=== PATIENT | male | born 1950 | race Caucasian/White ===

== ENCOUNTER 2025-05-09 15:06 | Outpatient (REF) | payer MEDICARE, SELFPAY ==
[2025-05-09 18:14] LABS: Anion Gap 9 (12-20); Blood Urea Nitrogen 25 mg/dL (9-16); Calcium 9.2 mg/dL (8.4-10.2); Carbon Dioxide 27 mmol/L (22-29); Chloride 110 mmol/L (96-108); Estimated Glomerular Filt Rate > 60; Potassium 3.7 mmol/L (3.3-5.1); Sodium 142 mmol/L (135-145)
[2025-05-09 18:23] LABS: Folate 6.3 ng/mL (> or = 4.0); Vitamin B12 645 pg/mL (200-900)
== END 2025-05-09 15:07 | disposition home or self-care (01) ==
LOC: HO.LAB 15:06
PROVIDERS: PCP Internal Medicine; Visit Provider Psychiatry & Neurology Neurology
DX: G31.84 Mild cognitive impairment of uncertain or unknown etiology (principal)
CPT/HCPCS: 36415; 80048; 82233; 82234; 82607; 82746; 84393; 84443

== ENCOUNTER 2025-05-09 15:06 | Outpatient (AMB) | payer MEDICARE, SELFPAY ==
--- NOTE | 2025-05-09 15:21 | A.OFFVIS_ITS ---
Intake Visit Reasons: dizziness, memory problem Allergies No Known Allergies Allergy (Verified 05/05/25 08:10) Medication List - Last Reconciled 05/09/25 by Kristin Burgos MD lorazepam 0.5 mg PO BEDTIME PRN HPI Comments Details: This is a healthy 75-year-old right-handed man who is here with his because of concerns of fairly significant short-term memory problems in the last 1-2 years, most noticeable in the last 6 months. He is aware of it. There is also been a few occasions of spatial disorientation while driving even though his driving skills are excellent still. His sleep is disrupted by trips to the bathroom 4 times every night and he has seen a urologist who prescribed tamsulosin which she has not started. He sometimes loses thread of conversation. He was also going through appeared a fatigue which has improved, during which time he would take power naps in the day. He goes to the gym and does weights and cardio for 1-1/2 hours 7 days a week. His appetite is good. He has a son who is 36 years old and is in administration at [employer]. The patient had 3 years of college at [employer] but did not graduate. 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 He gets occasional lightheaded dizziness if he bends down and stands up quick. He recently had an MRI of the brain at [place] which is reported as showing some ventriculomegaly and cortical atrophy. The question of hydrocephalus was raised. The disc was not available for review personally at the time of this evaluation. He has no bladder control issues and no gait problems. His father at 83 with Lewy body dementia. Mother lived till 95 and both sharp mentally. [facility] Medical History (Updated 05/09/25 @ 15:43 by Kristin Burgos MD) Memory problem Dizziness Review of Systems ENT Details: Sinus congestion and sinus problems, cough, and hearing loss Reports dizziness, Reports hearing loss and Reports nasal congestion Details: Urinary frequency especially at night. Neuro Reports dizziness and Reports memory loss Psych Reports anxiety and Reports memory loss Physical Exam Neuro Other: Mini Mental Status Exam Level of Consciousness:?Alert.? Orientation:?Knows correct year, month, date, day and season.?Knows correct city, county and state. Knows correct location and floor.? Registration:?Able to register 3 objects.? Attention:?Serial 7's performed?? accurately ti 51.? Recall:?Able to recall 3 out of 3 objects.?at 3 minutes, and 2/3 at 10 minutes Language:?Normal spontaneous speech, fluency, repetition, naming, comprehension, reading, and writing.? ?? Total Score:?30/30.? Neurological Abnormal neurological findings:??Walks with a walker. Morbidly obese. ? Mental Status:?Alert and oriented X 3.?Normal attention, orientation, memory, and affect.? Cranial Nerves:?Pupils are equal, round and reactive to light. Fundoscopy shows normal disc bilaterally. External ocular muscles are intact. Visual nguyen are full, no ptosis. Face is symmetrical, no facial weakness or droop. Facial sensations are normal.? Tongue protrudes in midline. Palate elevates symmetrically. Shoulder?? shrugging is normal.? Motor Examination:?Normal muscle tone, bulk and strength.?No atrophy or fasciculations.?No drift of the extended upper extremities.?Deep tendon reflexes are 2+.?Plantars?? are flexor.? ?Motor Strength:? Proximal Muscles (out of 5):?5 Distal Muscles (out of 5):?5 Neck Flexors (out of 5):?5 Neck Extensors (out of 5):?5 Deltoid (out of 5):?5 Biceps (out of 5):?5 Triceps (out of 5):?5 Serratus Anterior (out of 5):?5 Wrist Extensors (out of 5):?5 APB (out of 5):?5 Finger Spread (out of 5):?5 Ileopsoas (out of 5):?5 Quadriceps (out of 5):?5 Hamstrings (out of 5):?5 Tibialis Anterior (out of 5):?5 Peronei (out of 5):?5 EDB (out of 5):?5 Gastrocnemius (out of 5):?5 Straight Leg Raising:?90 degrees.? Sensory Exam:?Normal light touch,?? temperature, pinprick, vibration and joint- position sensations.?Rhomberg?? sign is absent.? Coordination:?No ataxia,?no titubation,?edbshq-hg-[id number], xrri-wtnr-mrbs test, and rapid alternating?? movements were normal.? Gait Exam:?Walks with a waddle using a walker. ? Cerebellar Signs:?Yfkiep-dx-tqay and?? gtli-yj-lqvo is normal.?No dysdiadochokinesia.? Extrapyramidal System:?No tremor or?rigidity, normal facial expressions.?No bradykinesia. No bradyphrenia. Normal arm swing and posture. No propulsion or retropulsion.? Speech:?Normal,?no dysphasia or dysarthria.? General Examination GENERAL APPEARANCE:??Morbid obesity, in no acute distress?.? ?? HEAD:??normocephalic,?atraumatic.? ?? EYES:??sclera non-icteric,?conjunctiva clear.? ?? EARS:??auditory canal clear,?tympanic membrane intact, clear.? ?? NOSE:??no lesions.? ?? ORAL CAVITY:??gums normal,?mucosa moist,?no lesions.? ?? THROAT:??clear.? ?? NECK/THYROID:??no cervical lymphadenopathy,?thyroid normal,?neck supple, full range of motion,?no carotid bruit.? ?? SKIN:??no rashes,?no significant?? birthmarks.? ?? HEART:??S1, S2 normal,?no murmurs? ?? LUNGS:??clear anteriorly and ?posteriorly? ?? CHEST:??no gross rib deformity,?clear to ?auscultation.? ?? BACK:??normal exam of spine.? ?? MUSCULOSKELETAL:??normal.? ?? EXTREMITIES:??no edema.? ?? PERIPHERAL PULSES:??normal.? ?? PSYCH:??alert, oriented,?cognitive function intact,?cooperative with exam?,?alert,?? oriented,?cognitive ?function intact,?cooperative with exam.? Assessment & Plan Assessment & Plan (1) MCI (mild cognitive impairment) with memory loss: Code(s): G31.84 - Mild cognitive impairment of uncertain or unknown etiology Category: Medical Plan Labs, EEG. MRI disc for review ( Patient to bring in disc), MOCA and MMSE for baseline Coding Level of Care Code New Pt Level 5 (14152) Diagnoses MCI (mild cognitive impairment) with memory loss G31.84
== END 2025-05-09 15:57 | disposition home or self-care (01) ==
LOC: HO.HSM 15:06
PROVIDERS: PCP Nurse Practitioner Primary Care; Visit Provider Psychiatry & Neurology Neurology
DX: G31.84 Mild cognitive impairment of uncertain or unknown etiology (principal)
CPT/HCPCS: 99205